=== PATIENT | female | born 1960 | race Caucasian/White ===

== ENCOUNTER 2020-10-01 12:38 | Emergency (ER) | payer OTHER ==
[2020-10-01] MEDS ORDERED: MEDROL DOSEPAK 24 MG PO (14:37)
[2020-10-01] MEDS ORDERED: BENADRYL25 MG PO (14:37)
== END 2020-10-01 15:27 | disposition home or self-care (01) ==
LOC: ER1 12:38
DX: R06.02 Shortness of breath (principal); R05 Cough; R07.89 Other chest pain; T50.995A Adverse effect of other drugs, medicaments and biological substances, initial encounter; G35 Multiple sclerosis; I48.91 Unspecified atrial fibrillation; J45.909 Unspecified asthma, uncomplicated; I25.10 Atherosclerotic heart disease of native coronary artery without angina pectoris; Z90.49 Acquired absence of other specified parts of digestive tract; Z88.0 Allergy status to penicillin; Z88.8 Allergy status to other drugs, medicaments and biological substances
CPT/HCPCS: 99284

== ENCOUNTER → 2020-10-01 | Outpatient (CLI) | payer OTHER ==
[~2020-10-01] VITALS: Ht 162.6 cm; Wt 70.3 kg
[~2020-10-01] MED LIST: BENADRYL25 MG PO; MEDROL DOSEPAK 24 MG PO
== END ==
LOC: OPSV 09:00
DX: G35 Multiple sclerosis (principal)
CPT/HCPCS: 96360; 96365; 96367; 96374; J0171; J1100; J1200; J2350; J7030; Q0177